=== PATIENT | female | born 1945 | race Caucasian/White ===

== ENCOUNTER 2020-10-04 20:01 | Outpatient (CLI) | payer MEDICARE | END 2020-10-04 20:02 | disposition home or self-care (01) | LOC: COV 20:01 | PROVIDERS: ATTEND Family Medicine | DX: R07.0 Pain in throat (principal); R09.89 Other specified symptoms and signs involving the circulatory and respiratory systems; Z20.828 Contact with and (suspected) exposure to other viral communicable diseases ==

== ENCOUNTER 2023-10-06 10:32 | Outpatient (CLI) | payer MEDICARE, OTHER ==
--- NOTE | 2023-10-06 14:35 | XRAY Report ---
PROCEDURE: Hand 2 View RT INDICATIONS: SPRAIN OF UNSPECIFIED PART OF RIGHT WRIST AND HAND TECHNIQUE: 2 views of the hand(s) acquired. COMPARISON: None. FINDINGS: Bones: Moderately displaced oblique fracture of the mid/distal aspect of the fourth metacarpal. Mode rately displaced comminuted fracture of the mid/proximal aspect of the distal phalanx of the first di git with articular surface extension to the interphalangeal joint. Joint space narrowing and periarti cular osteophyte formation at the scaphotrapezial, first, metacarpal joint, as well as the interphala ngeal joints of the digits.. No suspicious bony lesions. Soft tissues: No suspicious soft tissue calcifications or masses. IMPRESSION: 1. First and fourth digit fractures. 2. Osteoarthritis. Reviewed by: Sussy Meek MD on 10/06/2023 2:34 PM PST Approved by: Sussy Meek MD on 10/06/2023 2:34 PM PST Station ID: [id number]
== END 2023-10-06 10:33 | disposition home or self-care (01) ==
LOC: DI.N 10:32
PROVIDERS: ATTEND Nurse Practitioner
DX: S62.634A Displaced fracture of distal phalanx of right ring finger, initial encounter for closed fracture (principal); S62.521A Displaced fracture of distal phalanx of right thumb, initial encounter for closed fracture